=== PATIENT | female | born 2000 | race Two or more races ===

== ENCOUNTER 2019-07-24 15:02 | Emergency (ER) | payer OTHER ==
--- NOTE | 2019-07-24 15:09 | ER Document Report ---
ED Medical Screen (RME) - General Stated Complaint: BLOOD SUGAR PROBLEM Time Seen by Provider: 07/24/19 15:05 Mode of Arrival: Ambulatory Information source: Patient Notes: 19-year-old female presents emergency department with reports of low blood sugar and passing out. Patient reports history of diabetes but is no longer taking metformin. She regulates her diabetes with diet. Reports she was talking to someone and remembers waking up. Complains of frontal headache. Denies nausea vomiting. Reports she is currently on her manses denies . I have greeted and performed a rapid initial assessment of this patient. A comprehensive ED assessment and evaluation of the patient, analysis of test results and completion of the medical decision making process will be conducted by additional ED providers. Dictation of this chart was performed using voice recognition software; therefore, there may be some unintended grammatical errors.
[2019-07-24 15:40] LABS: APPEARANCE,URINE SLIGHTLY-CLOUDY; BILIRUBIN,URINE NEGATIVE (NEGATIVE); COLOR,URINE YELLOW; GLUCOSE, URINE NEGATIVE (NEGATIVE); KETONES,URINE NEGATIVE (NEGATIVE); LEUKOCYTE ESTERASE,URINE NEGATIVE (NEGATIVE); NITRITE,URINE NEGATIVE (NEGATIVE); PROTEIN,URINE NEGATIVE (NEGATIVE); URINE SPECIFIC GRAVITY 1.025
[2019-07-24 15:42] LABS: ABSOLUTE EOSINOPHILS # (AUTO) 0.2 10^3/uL (0.0-0.6); ABSOLUTE LYMPHOCYTES (AUTO) 2.4 10^3/uL (0.5-4.7); ABSOLUTE MONOCYTES (AUTO) 0.4 10^3/uL (0.1-1.4); ABSOLUTE NEUT (AUTO) 4.1 10^3/uL (1.7-8.2); BASOPHILS % (AUTO) 0.6 % (0-2); EOSINOPHILS % (AUTO) 2.3 % (0-6); HEMOGLOBIN 14.3 g/dL (12.0-15.5); LYMPHOCYTES % (AUTO) 33.3 % (13-45); MEAN CORPUSCULAR HEMOGLOBIN 27.5 pg (27.0-33.4); MEAN CORPUSCULAR HGB CONC 33.3 g/dL (32.0-36.0); MEAN CORPUSCULAR VOLUME 83 fl (80-97); MONOCYTES % (AUTO) 5.8 % (3-13); PLATELET COUNT 263 10^3/uL (150-450); RED BLOOD COUNT 5.21 10^6/uL (3.72-5.28); RED CELL DISTRIBUTION WIDTH 13.2 % (11.5-14.0); TOTAL CELLS COUNTED % (AUTO) 100 %; WHITE BLOOD COUNT 7.1 10^3/uL (4.0-10.5)
[2019-07-24 16:02] LABS: ALBUMIN 4.7 g/dL (3.5-5.0); ALKALINE PHOSPHATASE 76 U/L (38-126); ANION GAP 9 (5-19); ASPARTATE AMINO TRANSFERASE 29 U/L (14-36); BILIRUBIN,DIRECT 0.1 mg/dL (0.0-0.4); BILIRUBIN,TOTAL 0.8 mg/dL (0.2-1.3); BLOOD UREA NITROGEN 10 mg/dL (7-20); CALCIUM 9.8 mg/dL (8.4-10.2); CARBON DIOXIDE 27 mmol/L (22-30); CHLORIDE 104 mmol/L (98-107); GLUCOSE 97 mg/dL (75-110); POTASSIUM 4.4 mmol/L (3.6-5.0); TOTAL PROTEIN 7.6 g/dL (6.3-8.2)
--- NOTE | 2019-07-24 17:06 | ER Document Report ---
ED General - General Chief Complaint: Low Blood Sugar Stated Complaint: BLOOD SUGAR PROBLEM Time Seen by Provider: 07/24/19 15:05 Primary Care Provider: ZOE LONG MD [Primary Care Provider] - Follow up in 3-5 days Mode of Arrival: Ambulatory - [facility] Notes: 19-year-old female presents emergency department with reports of low blood sugar and passing out. States she that she has a history of Type II diabetes and reports that she regulates her diabetes with diet. She used to take metformin. States that she was in the kitchen when she passed out. Significant other states he heard her pass out. Patient also complains of frontal headache. States she has been having headaches for several weeks now. Denies nausea vomiting. Reports she is currently on her menses and denies . States that she is feeling fine and "hungry" and wants to go home. Past Medical History - General Information source: Patient - Social History Smoking Status: Never Smoker Frequency of alcohol use: None Drug Abuse: None Family History: Reviewed & Not Pertinent Patient has suicidal ideation: No Patient has homicidal ideation: No Review of Systems - Review of Systems Constitutional: denies: Chills, Fever EENT: No symptoms reported Cardiovascular: Syncope. denies: Chest pain, Palpitations, Heart racing, Orthopnea, Dyspnea, Dizziness, Lightheaded, Edema Respiratory: denies: Cough, Short of breath Gastrointestinal: denies: Abdominal pain, Diarrhea, Nausea, Vomiting Genitourinary: No symptoms reported Musculoskeletal: No symptoms reported Skin: No symptoms reported Neurological/Psychological: Headaches -: Yes All other systems reviewed and negative Physical Exam - Vital signs Vitals: Temp Pulse Resp BP Pulse Ox 98.2 F 59 L 16 126/78 H 100 07/24/19 15:12 07/24/19 15:12 07/24/19 15:12 07/24/19 15:12 07/24/19 15:12 Interpretation: Normal - General General appearance: Appears well, Alert In distress: None - HEENT Head: Normocephalic, Atraumatic Eyes: Normal Pupils: PERRL Ears: Normal External canal: Normal Tympanic membrane: Normal Sinus: Normal Nasal: Normal Mouth/Lips: Normal Mucous membranes: Normal Pharynx: Normal Neck: Normal, Supple - Respiratory Respiratory status: No respiratory distress Chest status: Nontender Breath sounds: Normal Chest palpation: Normal - Cardiovascular Rhythm: Regular Heart sounds: Normal auscultation Murmur: No - Abdominal Inspection: Normal Distension: No distension Bowel sounds: Normal Tenderness: Nontender Organomegaly: No organomegaly - Neurological Neuro grossly intact: Yes Cognition: Normal Orientation: AAOx4 [place] Coma Scale Eye Opening: Spontaneous [place] Coma Scale Verbal: Oriented Jimmie Coma Scale Motor: Obeys Commands [place] Coma Scale Total: 15 Speech: Normal Cranial nerves: Normal. No: Facial palsy, Forehead sparing, Gaze palsy, Sensory deficit Cerebellar coordination: Normal. No: Gait ataxia Motor strength normal: LUE, RUE, LLE, RLE Additional motor exam normals: Equal adolescent coordinator. No: Pronator drift Sensory: Normal - Psychological Associated symptoms: Normal affect, Normal mood - Skin Skin Temperature: Warm Skin Moisture: Dry Skin Color: Normal Course - Re-evaluation Re-evalutation: Patient states she is feeling better and would like to be discharged home. Repeat Glucose is 104 after getting patient to drink sima moses and drink fluids. Will discharge home. Encouraged to eat a good meal and to follow up with PCP. Urged to return if symptoms worsened or recurrence of syncope. Patient agrees with the plan. - Vital Signs Vital signs: Temp Pulse Resp BP Pulse Ox 98.2 F 69 16 113/59 L 97 07/24/19 18:41 07/24/19 18:41 07/24/19 18:41 07/24/19 18:41 07/24/19 18:41 - Laboratory Result Diagrams: 07/24/19 15:24 07/24/19 15:24 Laboratory results interpreted by me: 07/24/19 15:24 Urine Urobilinogen 4.0 H Discharge - Discharge Clinical Impression: Hypoglycemia, Headache Syncope Qualifiers: Encounter type: initial encounter Disposition: HOME, SELF-CARE Instructions: Hypoglycemia ([facility]) Additional Instructions: FOLLOW UP WITH PRIMARY CARE WITHOUT FAIL ON FRIDAY. RETURN IF WORSE. EAT REGULAR MEALS. Prescriptions: Butalb/Acetaminophen/Caffeine [Fioricet (50-325-40 mg) Tablet] 1 tab PO Q4HP PRN #12 tab PRN Reason: Referrals: ZOE LONG MD [Primary Care Provider] - Follow up in 3-5 days
[2019-07-24] MEDS ORDERED: BUTALB/ACETAMINOPHEN/CAFFEINE 1 TAB EACH PO ONE (17:07)
[2019-07-24 18:42] VITALS: BP 113/59
== END 2019-07-24 18:42 | disposition home or self-care (01) ==
LOC: ER 15:02
DX: E11.649 Type 2 diabetes mellitus with hypoglycemia without coma (principal); R55 Syncope and collapse; R51 Headache
CPT/HCPCS: 36415; 82962; 85025; 81025; 80053; 81001; J3490